=== PATIENT | female | born 1935 ===

== ENCOUNTER 2020-07-15 19:30 | Outpatient (NON) | payer MEDICARE, SELFPAY ==
[2020-07-15 19:42] LABS: Anion Gap 7 mmol/L (8-16); Blood Urea Nitrogen 69 mg/dL (7-18); Calcium 9.5 mg/dL (8.5-10.1); Carbon Dioxide 30 mmol/L (21-32); Chloride 100 mmol/L (98-108); Estimated Glomerular Filt Rate 28; Glucose 145 mg/dL (70-99); Osmolality Calculated 307 mOsm/kg (285-295); Potassium 3.7 mmol/L (3.5-5.1); Sodium 137 mmol/L (136-145)
== END 2020-07-15 19:31 ==
LOC: CHSLAB 19:33
PROVIDERS: PCP Family Medicine; Visit Provider Family Medicine
DX: I12.9 Hypertensive chronic kidney disease with stage 1 through stage 4 chronic kidney disease, or unspecified chronic kidney disease (principal); Z94.0 Kidney transplant status
CPT/HCPCS: 36415; 80048